=== PATIENT | male | born 1935 | race Caucasian/White ===

== ENCOUNTER 2021-12-04 05:31 | Emergency (ER) | payer MEDICARE, OTHER ==
[~2021-12-04] VITALS: Ht 175.3 cm; Wt 66.7 kg
[~2021-12-04 05:31] MED LIST: CARVEDILOL12.5 MG PO; CEPH500 PO; CYCLOSPORINE25 M2 PO; DILTIAZEM 12HR120 M9 PO; LATANOPROST2.5 M3 BOTHEYES; PRAZ5 PO
== END 2021-12-04 07:12 | disposition home or self-care (01) ==
LOC: ER 05:31
DX: Z04.89 Encounter for examination and observation for other specified reasons (principal); J44.9 Chronic obstructive pulmonary disease, unspecified; U07.1 COVID-19; Z87.891 Personal history of nicotine dependence; Z79.899 Other long term (current) drug therapy
CPT/HCPCS: 99283

== ENCOUNTER 2022-12-27 08:07 | Emergency (ER) | payer OTHER, MEDICARE ==
[~2022-12-27] VITALS: Ht 172.7 cm; Wt 64.9 kg
[2022-12-27 10:45] VITALS: BP 126/89
[2022-12-27] MEDS ORDERED: Ultram50 MG PO (11:29)
[2022-12-27] MEDS ORDERED: TRAM50 PO (11:30)
[2022-12-28] MEDS ORDERED: Amoxicillin500 MG PO (18:12)
== END 2022-12-27 11:53 | disposition home or self-care (01) ==
LOC: ER 08:07
DX: S09.90XA Unspecified injury of head, initial encounter (principal); M54.6 Pain in thoracic spine; M54.2 Cervicalgia; M54.50 Low back pain, unspecified; G89.29 Other chronic pain; W01.10XA Fall on same level from slipping, tripping and stumbling with subsequent striking against unspecified object, initial encounter; Z79.899 Other long term (current) drug therapy; I10 Essential (primary) hypertension
CPT/HCPCS: 70450; 72040; 72070; 72100; 99285-25; A9270